=== PATIENT | female | born 1965 | race Caucasian/White ===

== ENCOUNTER 2020-02-08 14:16 | Emergency (ER) | payer OTHER, SELFPAY ==
--- NOTE | ~2020-02-08 | XR_ITS ---
EXAMINATION: XR chest 2V EXAM DATE: 02/08/2020 15:35 INDICATION: Right-sided chest pain. TECHNIQUE: Frontal and lateral projections of the chest obtained and reviewed. Comparison is made to prior examination from 03/20/2019. FINDINGS: The lungs are clear. There are no pleural effusions. The cardiomediastinal silhouette is within normal limits. There is no pneumothorax suspected. The bones and soft tissues are unremarkab le. There are cholecystectomy clips. There is no significant interval change. IMPRESSION: No acute cardiopulmonary findings. Reviewed, dictated and finalized at location A.
[2020-02-08 14:30] VITALS: BP 161/83; PULSE 69; RESP 16; TEMP 36.2; O2SAT 100
--- NOTE | 2020-02-08 15:22 | ED.GENADULT ---
HPI - General Adult General Chief complaint: Abdominal Pain Stated complaint: pain right side pain Time Seen by Provider: 02/08/20 15:28 Source: patient Mode of arrival: ambulatory Limitations: no limitations History of Present Illness HPI narrative: 54-year-old female patient presents to the [facility] with complaints of right-sided abdominal/chest pain for the past 3 days. Patient denies any injury to the area. Patient states she does no longer have her gallbladder. Patient denies any daily drinking. They denies any increased pain with eating. Patient states at times it does increase the pain when taking a deep breath or when moving certain ways. Patient states she has been taking ibuprofen which has helped with the pain at times. Patient states that she is an active smoker. Patient states she has also had a little bit of sinus drainage but denies any fevers, coughing, chest pain or shortness of breath. Denies any abdominal pain, nausea, vomiting or diarrhea. Related Data Home Medications Medication Instructions Recorded Confirmed atorvastatin 20 mg PO DAILY 07/13/19 02/08/20 loratadine 10 mg PO DAILY 07/13/19 02/08/20 losartan 50 mg PO DAILY 07/13/19 02/08/20 sildenafil (pulm.hypertension) 20 mg PO DAILY 07/13/19 02/08/20 Allergies Allergy/AdvReac Type Severity Reaction Status Date / Time amoxicillin Allergy Intermediate rash Verified 02/08/20 14:37 erythromycin base Allergy Intermediate rash Verified 02/08/20 14:37 Penicillins Allergy Unknown Rash Verified 02/08/20 14:37 rabbit dander Allergy Unknown Anaphylactic Verified 02/08/20 14:37 Shock strawberry Allergy Unknown Hives / Verified 02/08/20 14:37 Red Face Honey Bee Allergy Hives / Uncoded 02/08/20 14:37 Red Face Review of Systems Review of Systems: Narrative: CONSTITUTIONAL: Denies fever, chills, or sweats. EYES: Denies visual changes, redness, or discharge. ENT: Denies rhinorrhea, congestion, sore throat, or otalgia. CARDIOVASCULAR: Positive right-sided chest pain, palpitations, or edema. RESPIRATORY: Denies cough or dyspnea. GASTROINTESTINAL: Positive upper right-sided abdominal pain, denies nausea, vomiting, or diarrhea. GENITOURINARY: Denies dysuria or hematuria. SKIN: Denies rash or itching. MUSCULOSKELETAL: Denies back pain, joint pain, or myalgia. NEUROLOGIC: Denies headache, numbness, or weakness. PSYCHIATRIC: Denies anxiety or depression. [facility] Social History Social History Gender identity (if verbalized by the patient): Female Comments At the time of my signature I agree with nursing past medical history, surgical, social, and family history. There is no relevant family history pertinent to the presenting complaint. Exam Narrative: Exam Narrative: GENERAL: Well-appearing, well-nourished, and in no acute distress. HEAD: Normocephalic, atraumatic. EYES: PERRLA and EOMI. ENT: Nares clear, no rhinorrhea or epistaxis. Mucous membranes moist. NECK: Supple. No lymphadenopathy CHEST: Patient has some rhonchi noted to bilateral lower lobes as well as the left upper lobe. No respiratory distress. Patient has some slight pain on the lateral chest on palpation to the sixth and seventh rib on the anterior side that radiates and wraps around to the posterior side. No bruising noted. HEART: Regular rate and rhythm. No murmur heard. Normal peripheral pulses. ABDOMEN: Soft, flat, nondistended. No guarding, rebound tenderness, or rigid. No pulsatilla masses. Bowel sounds present in all four quadrants. No organomegaly. Negative Valencia?s sign. No periumbicial tenderness. No Supra public tenderness or distension. Good femoral pulses bilaterally. No hernia noted. No scars or surface trauma. EXTREMITIES: Normal range of motion. No edema. SKIN: Warm, dry, no rash. NEURO: No focal deficits. Alert and oriented x3. Course Reevaluation(s) Reevaluation #1: Reevaluated patient and notified her that h
== END 2020-02-08 15:50 | disposition home or self-care (01) ==
PROVIDERS: Emergency Provider Nurse Practitioner Family; PCP Family Medicine
DX: M94.0 Chondrocostal junction syndrome [Tietze] (principal)
CPT/HCPCS: 71046; 99213; G0463

== ENCOUNTER 2021-07-03 14:56 | Emergency (ER) | payer MEDICARE, MEDICAID, SELFPAY ==
[2021-07-03 15:09] VITALS: BP 124/84; PULSE 99; RESP 16; TEMP 37.7; O2SAT 100
--- NOTE | 2021-07-03 16:59 | ED.URI ---
HPI - URI/Sore Throat General Chief Complaint: Upper Respiratory Infection Stated Complaint: Fever, cough, sore throat. Time Seen by Provider: 07/03/21 16:59 Source: patient Mode of arrival: ambulatory Limitations: no limitations History of Present Illness HPI Narrative: Stacy almanza is a 56 yo female with a PMH of HTN, high cholesterol, Reynaud's, who comes with fever , shivering, cough, feeling out of sorts x 36 hours - patient is a smoker and has a history of pneumonia bronchitis Related Data Home Medications Medication Instructions Recorded Confirmed atorvastatin 20 mg PO DAILY 07/13/19 02/08/20 loratadine 10 mg PO DAILY 07/13/19 02/08/20 losartan 50 mg PO DAILY 07/13/19 02/08/20 sildenafil (pulm.hypertension) 20 mg PO DAILY 07/13/19 02/08/20 Allergies Allergy/AdvReac Type Severity Reaction Status Date / Time amoxicillin Allergy Intermediate rash Verified 02/08/20 14:37 erythromycin base Allergy Intermediate rash Verified 02/08/20 14:37 Penicillins Allergy Unknown Rash Verified 02/08/20 14:37 rabbit dander Allergy Unknown Anaphylactic Verified 02/08/20 14:37 Shock strawberry Allergy Unknown Hives / Verified 02/08/20 14:37 Red Face Honey Bee Allergy Hives / Uncoded 02/08/20 14:37 Red Face Review of Systems Review of Systems: CONSTITUTIONAL: Has fever, chills, sweats. EYES: Denies visual changes, redness, discharge. ENT: Denies rhinorrhea, has congestion, has sore throat, otalgia. CARDIOVASCULAR: Denies chest pain, palpitations, edema. RESPIRATORY: Denies dyspnea, wheezing, has cough GASTROINTESTINAL: Denies abdominal pain, nausea, vomiting, diarrhea. GENITOURINARY: Denies dysuria, hematuria, abnormal discharge SKIN: Denies rash or itching. NEUROLOGIC: Denies numbness, or focal weakness. PSYCHIATRIC: Denies anxiety or depression. [facility] Past Medical History Medical History HTN (hypertension) Raynauds disease Social History Social History (Updated 07/03/21 @ 17:06 by Mattie Moore CNP) Smoking packs per day: 0.5 Smoking cigarettes per day: 10.0 Smoking status: Current every day smoker Alcohol intake: current Gender identity (if verbalized by the patient): Female Comments At time of signature, I agree with nursing past medical, surgical, social and family history. There is no relevant family history pertinent to the presenting complaint. Exam Narrative: GENERAL: This is a well-nourished, well-developed patient, in moderate distress. HEAD: normocephalic, atraumatic. EYES: Sclera clear/white. Vision is grossly intact. EARS: External ears normal, . Hearing grossly intact. NOSE: External nose normal without nasal discharge, nares without redness, no rhinorrhea. THROAT: Mucous membranes moist, posterior pharynx reddened NECK: Neck supple, non-tender CARDIOVASCULAR: Tachycardic rate and rhythm without murmurs, gallops, or rubs. RESPIRATORY: Coarse to auscultation. Breath sounds equal bilaterally. No wheezes, rales, or rhonchi. GASTROINTESTINAL: Abdomen soft, SKIN: warm, intact with no suspicious lesions or rash, good texture and turgor. NEURO: awake, alert, and oriented to person, place and time. There were no obvious focal neurologic abnormalities. Steady gait EXTREMITIES: Normal range of motion. BACK: Nontender without deformity Course Course Emergency Course: Patient here with fever congestion cough x36 hours Flu test negative Covid test to [facility] due to duration of symptoms Started on Zithromax prednisone Mikala Dumont directed to give Tylenol and ibuprofen rotation Vital Signs Vital signs: Vital Signs Temperature 99.9 F H 07/03/21 15:09 Pulse Rate 99 07/03/21 15:09 Respiratory Rate 16 07/03/21 15:09 Blood Pressure 124/84 07/03/21 15:09 Pulse Oximetry 100 07/03/21 15:09 Temperature 99.9 F H 07/03/21 15:09 Pulse Rate 99 07/03/21 15:09 Respiratory Rate 16 07/03/21 15:09 Blood P
== END 2021-07-03 17:16 | disposition home or self-care (01) ==
PROVIDERS: Emergency Provider Nurse Practitioner
DX: Z20.822 Contact with and (suspected) exposure to COVID-19 (principal); R50.9 Fever, unspecified; R05.9 Cough, unspecified; I10 Essential (primary) hypertension; I73.00 Raynaud's syndrome without gangrene; F17.210 Nicotine dependence, cigarettes, uncomplicated
CPT/HCPCS: 87804; 99213; G0463

== ENCOUNTER → 2021-07-05 02:47 | Outpatient (CLI) | payer MEDICARE, SELFPAY ==
[2021-07-05 21:05] LABS: SARS-CoV-2 RNA PCR Positive
== END ==
PROVIDERS: Visit Provider Nurse Practitioner
DX: U07.1 COVID-19 (principal)
CPT/HCPCS: C9803; U0003; U0005

== ENCOUNTER → 2022-06-12 10:50 | Outpatient (CLI) | payer MEDICARE, MEDICAID, SELFPAY ==
--- NOTE | ~2022-06-12 | MR_ITS ---
EXAMINATION: MR shoulder RT wo con DATE: 06/12/2022 11:46 INDICATION: Rotator cuff strain. Right shoulder pain. TECHNIQUE: Magnetic resonance imaging (MRI) of the right shoulder was performed without intravenous c ontrast. Sequences included axial PD-weighted FS FSE, coronal oblique PD-weighted FS FSE and T2-weigh kady FS FSE, and sagittal oblique T2-weighted FS FSE and T1-weighted FSE. COMPARISON: None. FINDINGS: Coracoacromial arch: The acromion undersurface is curved in morphology (type II). There is severe acromioclavicular joint osteoarthritis including inferiorly directed osteophytes. There is mild subacromial/subdeltoid bursit is. Rotator cuff: There is moderate tendinopathy of supraspinatus and infraspinatus tendons. Teres minor tendon is norm al. Infraspinatus tendon is normal. No tear. There is no asymmetric fatty atrophy of the rotator cuff muscle bellies. There is degenerative cystic change in greater tuberosity. Biceps tendon and glenoid labrum: Biceps tendon is in bicipital groove. There is mild intra-articular biceps tendinopathy. There is a t ear of glenoid labrum from 11:00 to 12:00 (SLAP tear). Fluid: There is no glenohumeral joint effusion. Bones/cartilage: There is cartilage surface irregularity of humeral head and glenoid. IMPRESSION: 1. Moderate rotator cuff tendinopathy. No tear. 2. Mild glenohumeral joint chondrosis. SLAP tear. 3. Mild intra-articular biceps tendinopathy. 4. Severe acromioclavicular joint osteoarthritis. 5. Mild subacromial/subdeltoid bursitis. Reviewed, dictated and finalized at location E. [facility] [employer]
== END ==
DX: S46.011A Strain of muscle(s) and tendon(s) of the rotator cuff of right shoulder, initial encounter (principal); S43.431A Superior glenoid labrum lesion of right shoulder, initial encounter; M19.011 Primary osteoarthritis, right shoulder; M71.9 Bursopathy, unspecified; T14.90XA Injury, unspecified, initial encounter
CPT/HCPCS: 73221

== ENCOUNTER 2023-10-28 10:00 | Outpatient (CLI) | payer MEDICARE, MEDICAID, SELFPAY ==
--- NOTE | ~2023-10-28 | MM_ITS ---
EXAMINATION: MM screening yudith BI w aretha HISTORY: Screening mammogram TECHNIQUE: Craniocaudal and mediolateral oblique 3-D tomosynthesis images were obtained and synthetic 2-D images were generated. CAD analysis was submitted and interpreted. COMPARISON: 01/27/2019 bilateral screening mammogram BREAST PARENCHYMAL COMPOSITION: The breasts are heterogeneously dense, which may obscure small masses . FINDINGS: There is no evidence of suspicious mass, calcification, or architectural distortion to sugg est malignancy in either breast. There has been no suspicious interval change. IMPRESSION: 1. No mammographic evidence of malignancy. 2. Recommend routine screening mammography in one year. BI-RADS Category 1: Negative Reviewed, dictated and finalized at location A.
== END 2023-10-28 10:01 | disposition home or self-care (01) ==
LOC: ANHIMG 10:07
DX: Z12.31 Encounter for screening mammogram for malignant neoplasm of breast (principal)
CPT/HCPCS: 77063; 77067